=== PATIENT | male | born 1975 | race Caucasian/White ===

== ENCOUNTER 2016-12-12 23:00 | Inpatient (IN) ==
[2016-12-12] MEDS ORDERED: NS 1,000 ML IV ONE (23:17)
[2016-12-12 23:41] LABS: MANUAL DIFF NEEDED? NO
[2016-12-12 23:47] LABS: BASO% 0.1 % (0.0-0.8); EOS# 0.13 X1000 (0.0-0.7); EOS% 0.9 % (0.0-10.0); HEMATOCRIT 45.6 % (42.0-52.0); IMM GRAN# 0.04 X1000 (0.0-0.04); IMM GRAN% 0.3 % (0.0-0.5); LYMPH# 1.51 X1000 (1.2-3.4); LYMPH% 9.9 % (20.5-51.1); MCH 29.9 PG (27-31); MCHC 35.1 g/dL (33-37); MCV 85.2 FL (81-99); MONO# 0.61 X1000 (0.11-0.59); MPV 9.7 FL (7.4-10.4); NEUT% 84.8 % (42.2-75.2); PLT 310 X1000 (130-400); RBC 5.35 XMIL (4.7-6.1)
[2016-12-12 23:53] LABS: UR AMPHETAMINES QUAL NONE DETECTED (NONE DETECT); UR BARBITUATES QUAL NONE DETECTED (NONE DETECT); UR BENZODIAZEPIN QUAL PRESUMPTIVE POSITIVE (NONE DETECT); UR CANNABINOIDS QUAL NONE DETECTED (NONE DETECT); UR COCAINE QUAL NONE DETECTED (NONE DETECT); UR MDMA QUAL NONE DETECTED (NONE DETECT); UR METHADONE QUAL NONE DETECTED (NONE DETECT); UR METHAMPHETAMINE QUAL PRESUMPTIVE POSITIVE (NONE DETECT); UR OPIATES QUAL PRESUMPTIVE POSITIVE (NONE DETECT); UR OXYCODONE QUAL PRESUMPTIVE POSITIVE (NONE DETECT); UR PCP QUAL NONE DETECTED (NONE DETECT); UR TCA QUAL NONE DETECTED (NONE DETECT)
[2016-12-12 23:54] LABS: BILIRUBIN URINE NEGATIVE (NEGATIVE); BLOOD URINE NEGATIVE (NEGATIVE); CLARITY CLEAR (CLEAR); COLOR YELLOW; LEUKOCYTES URINE NEGATIVE (NEGATIVE); NITRITE URINE NEGATIVE (NEGATIVE); PROTEIN URINE 1+(30 mg/dL) mg/dL (NEGATIVE); UROBILINOGEN URINE NORMAL
[2016-12-12 23:59] LABS: URINE CULTURE PL NEEDED? YES; URINE EPITHELIAL CELLS <10 /HPF (<10); URINE RBC <10 /HPF (<10); URINE SOURCE CATH; URINE WBC <10 /HPF (<10)
[2016-12-13 00:02] LABS: AGAP 15; ALBUMIN 4.2 g/dL (3.5-5.0); ALKALINE PHOSPHATASE 75 U/L (32-122); BUN 10 mg/dL (8-22); CALCIUM 8.7 mg/dL (8.8-10.2); CHLORIDE 98 mmol/L (98-107); COSMO 283; GOT 27 U/L (10-34); GPT 32 U/L (10-44); SODIUM 138 mmol/L (136-145); TCO2 26 mmol/L (25-35); TOTAL PROTEIN 6.6 g/dL (6.3-8.3)
[2016-12-13] MEDS ORDERED: NS 1,000 ML IV ONE (01:40)
[2016-12-13] MEDS ORDERED: ZOFRAN IV PRN (01:40)
--- NOTE | 2016-12-13 02:35 | PROVIDER DOCUMENTATION ---
This chart was entered by Sury Keller Scribe, acting as scribe for Murphy Cardona MD. [id number] Abuse/Overdose - General Chief Complaint: Overdose Stated Complaint: overdose Time Seen by Provider: 12/12/16 23:16 Source: patient, EMS Allergies/Adverse Reactions: Allergies Allergy/AdvReac Type Severity Reaction Status Date / Time No Known Allergies Allergy Verified 10/21/16 21:09 Home Medications: Home Medication List Medication Instructions Recorded Confirmed Last Taken Type Cyclobenzaprine [Flexeril] 10 mg PO TID #20 tablet 10/21/16 Unknown Rx Ketorolac [Toradol] 10 mg PO Q8H PRN PRN #15 tablet 10/21/16 Unknown Rx Methylprednisolone [Medrol Dosepak] 4 mg PO DIRECTED #1 package 10/21/16 Unknown Rx - History of Present Illness-Drug/Alcohol Nature of Presenting Problem: 41 Y/O M presents to ER by EMS with the complain of overdose [employer]. According to the EMS pt was found unresponsive by his and she called ambulance. pt states that pt was taking methadon 2-3 years ago and pt works out of [employer] and takes his medicaton with him. pt is shaking all over his body and having severe withdrawal symptoms. This episode of drinking or use began:: just prior to arrival Associated Symptoms: reports: other (tremors and unressponsive) Review of Systems - Adult - REVIEW OF SYSTEMS - ADULT Constitutional: reports: no symptoms reported Eyes: reports: no symptoms reported Ears, Nose, Mouth & Throat: reports: no symptoms reported Cardiovascular: reports: no symptoms reported Respiratory: reports: no symptoms reported Gastrointestinal: reports: no symptoms reported Genitourinary: reports: no symptoms reported Musculoskeletal: reports: no symptoms reported Integumentary: reports: no symptoms reported Neurological: reports: tremors. denies: slurred speech, syncope Psychiatric: reports: no symptoms reported Endocrine: reports: no symptoms reported Hematologic/Lymphatic: reports: no symptoms reported Allergic/Immunologic: reports: no symptoms reported All Other Systems: Reviewed and Negative Past History - Adult - PAST MEDICAL HISTORY-ADULT Review of Records: reports: Old Records Reviewed, Nursing Assessment Review Major Childhood Illnesses: reports: denies history Cardiovascular: reports: denies history Respiratory: reports: other (recurrent pneumonia) Gastrointestinal: reports: denies history Obstetrical/Gynecological: reports: denies history Genitourinary: reports: denies history Musculoskeletal: reports: arthritis, chronic pain, neck/back injury Neurological: reports: denies history Endocrine/Immune: reports: denies history Other Conditions: reports: denies history - PRIOR SURGERIES/PROCEDURES Surgical/Procedure History: reports: tonsillectomy - IMMUNIZATION STATUS Childhood Immunizations: See Nurse Assessment Flu Vaccine: See Nurse Assessment - FAMILY HISTORY Family History: reviewed, not pertinent - SOCIAL HISTORY Smoking: cigarettes Provider spent 3-5 mins advising pt. on dangers of tobacco.: Discussed manners to quit use, and f/u contacts for add'l counseling. Physical Exam-General - PHYSICAL EXAM-ADULT Initial Vital Signs Reviewed: Yes - CONSTITUTIONAL General Appearance: mild distress, other (shaking all over his body) - EYES Eyes: PERRL/EOMI, pink conjunctivae - NECK Neck: non-tender, full range of motion, supple - RESPIRATORY Respiratory: chest non-tender, lungs clear, normal breath sounds - CARDIOVASCULAR Cardiovascular: normal peripheral pulses, regular rate, rhythm - MUSCULOSKELETAL Back Exam: normal inspection, no CVA tenderness - SKIN Integumentary: normal color, normal turgor, warm/dry - NEUROLOGIC Neurologic: grossly normal, no motor/sensory deficits - PSYCHIATRIC Psych/Mental Status: normal mood/affect, oriented x 3 Progress - PLAN OF CARE/RESULTS Progress/Plan/Lab Results: Vital Signs - 8 hr 12/12/16 23:01 12/12/16 23:10 12/13/16 00:43 Temperature 97.4 F L Pulse Rate 152 H 135 H 104 H Respiratory Rate 38 H 28 H 20 Blood Pressure 126/101 149/090 134/078 O2 Sat by Pulse Oximetry 94 L 96 100 Laboratory Results - last 24 hr 12/12/16 12/12/16 12/12/16 23:25 23:25 23:30 WBC RBC Hgb Hct MCV MCH MCHC RDW Std Deviation Plt Count MPV Immature Gran % (Auto) Neut % (Auto) Lymph % (Auto) Cole % (Auto) Eos % (Auto) Baso % (Auto) Immature Gran # (Auto) Neut # (Auto) Lymph # (Auto) Cole # (Auto) Eos # (Auto) Baso # (Auto) Sodium 138 Potassium 4.0 Chloride 98 Carbon Dioxide 26 Anion Gap 15 BUN 10 Creatinine 1.2 Estimated GFR/1.73 m2 > 60 BUN/Creatinine Ratio 8 Glucose 251 H Calculated Osmolality 283 Calcium 8.7 L Total Bilirubin 0.30 AST 27 ALT 32 Alkaline Phosphatase 75 Total Protein 6.6 Albumin 4.2 Globulin 2.0 Albumin/Globulin Ratio 2.0 Urine Source CATH Urine Color YELLOW Urine Clarity CLEAR Urine pH 5.0 Ur Specific [place] 1.020 Urine Protein 1+(30 mg/dL) A Urine Ketones NEGATIVE Urine Blood NEGATIVE Urine Nitrite NEGATIVE Urine Bilirubin NEGATIVE Urine Urobilinogen NORMAL Urine Microscopic RBC <10 Urine WBC NEGATIVE Urine Microscopic WBC <10 Ur Epithelial Cells <10 Urine Bacteria 2+ Urine Glucose 2+(250 mg/dL) A Urine Opiates Screen PRESUMPTIVE POSITIVE A Ur Oxycodone Screen PRESUMPTIVE POSITIVE A Urine Methadone Screen NONE DETECTED Ur Barbituates Screen NONE DETECTED Ur Tricyclics Screen NONE DETECTED Ur Phencyclidine Scrn NONE DETECTED Ur Amphetamines Screen NONE DETECTED U Methamphetamines Scrn PRESUMPTIVE POSITIVE A Urine MDMA Screen NONE DETECTED U Benzodiazepines Scrn PRESUMPTIVE POSITIVE A Urine Cocaine Screen NONE DETECTED U Cannabinoids Screen NONE DETECTED Plasma/Serum Ethyl Alc 12/12/16 12/12/16 23:30 23:30 WBC 15.18 H RBC 5.35 Hgb 16.0 Hct 45.6 MCV 85.2 MCH 29.9 MCHC 35.1 RDW Std Deviation 13.3 Plt Count 310 MPV 9.7 Immature Gran % (Auto) 0.3 Neut % (Auto) 84.8 H Lymph % (Auto) 9.9 L Cole % (Auto) 4.0 Eos % (Auto) 0.9 Baso % (Auto) 0.1 Immature Gran # (Auto) 0.04 Neut # (Auto) 12.87 H Lymph # (Auto) 1.51 Cole # (Auto) 0.61 H Eos # (Auto) 0.13 Baso # (Auto) 0.02 Sodium Potassium Chloride Carbon Dioxide Anion Gap BUN Creatinine Estimated GFR/1.73 m2 BUN/Creatinine Ratio Glucose Calculated Osmolality Calcium Total Bilirubin AST ALT Alkaline Phosphatase Total Protein Albumin Globulin Albumin/Globulin Ratio Urine Source Urine Color Urine Clarity Urine pH Ur Specific [place] Urine Protein Urine Ketones Urine Blood Urine Nitrite Urine Bilirubin Urine Urobilinogen Urine Microscopic RBC Urine WBC Urine Microscopic WBC Ur Epithelial Cells Urine Bacteria Urine Glucose Urine Opiates Screen Ur Oxycodone Screen Urine Methadone Screen Ur Barbituates Screen Ur Tricyclics Screen Ur Phencyclidine Scrn Ur Amphetamines Screen U Methamphetamines Scrn Urine MDMA Screen U Benzodiazepines Scrn Urine Cocaine Screen U Cannabinoids Screen Plasma/Serum Ethyl Alc Orders Category Date Time Status Admit - [facility] Routine AdmDCTranf 12/13/16 01:40 Ordered Activity - Strict Bedrest ORDERED Care 12/13/16 01:40 Active Gutierrez Cath Insertion ORDERED Care 12/12/16 23:30 Active Vital Signs Order ARRIVAL TO ROOM Care 12/13/16 01:40 Active Regular Diet Diet 12/13/16 01:41 Active ALCOHOL BLOOD Stat Lab 12/12/16 23:30 Completed CBC WITH ELECTRONIC DIFF [HEME] Stat Lab 12/12/16 23:30 Completed CMP [COMPREHENSIVE METABOLIC PANEL] [CHEM] Stat Lab 12/12/16 23:30 Completed UDS [URINE DRUG SCREEN PL] Stat Lab 12/12/16 23:25 Completed URINE CULTURE [RM] Routine Lab 12/13/16 00:00 Ordered ua [URINALYSIS PL W/POSS RFLX CULT] [URINALYSIS] Stat Lab 12/12/16 23:25 Completed 0.9% Sodium Chloride Inj [Ns] 1,000 ml Med 12/13/16 01:40 Active IV 125 mls/hr 0.9% Sodium Chloride Inj [Ns] 1,000 ml Med 12/12/16 23:17 Discontinued IV 999 mls/hr Ondansetron [Zofran] Med 12/13/16 01:40 Active 4 mg IV Q4H PRN PRN Oxygen Device Stat Oth 12/13/16 01:43 Active Telemetry [OM.EQ] Routine Oth 12/13/16 01:40 Active Transfer/Admit Order [TRANSFER] Routine Transfer 12/13/16 01:42 Ordered Result Diagrams: 12/12/16 23:30 12/12/16 23:30 - CONSULTS/PCP/HOSPITALIST Notification #1 *Consult/PCP/Hospitalist*: Dr. Murray Time Discussed: 01:37 Reason/Comments: discussed about pt Departure - Departure Date of Disposition Decision: 12/13/16 Time of Disposition Decision: 02:35 DIAGNOSIS: Opiate overdose Disposition: ADMITTED INPATIENT 09 Certified Medical Emergency: Emergent Condition: Serious - Critical Care Note This patient required my direct & personal management of CC.: No This chart was documented by the indicated scribe, (Sury Keller, Doc) and accurately reflects the services I performed and decisions made by me, Murphy Cardona MD, as attested by the provider's signature.
[2016-12-13 06:05] LABS: MANUAL DIFF NEEDED? NO
[2016-12-13 06:08] LABS: BASO% 0.2 % (0.0-0.8); EOS# 0.08 X1000 (0.0-0.7); EOS% 0.5 % (0.0-10.0); HEMATOCRIT 43.7 % (42.0-52.0); HEMOGLOBIN 15.1 g/dL (14.0-18.0); IMM GRAN# 0.03 X1000 (0.0-0.04); IMM GRAN% 0.2 % (0.0-0.5); LYMPH% 12.1 % (20.5-51.1); MCH 29.8 PG (27-31); MCHC 34.6 g/dL (33-37); MCV 86.2 FL (81-99); MONO# 1.06 X1000 (0.11-0.59); MONO% 6.8 % (1.7-9.3); MPV 10.1 FL (7.4-10.4); NEUT% 80.2 % (42.2-75.2); PLT 297 X1000 (130-400); RBC 5.07 XMIL (4.7-6.1)
[2016-12-13 06:29] LABS: AGAP 7; BUN 12 mg/dL (8-22); CALCIUM 8.9 mg/dL (8.8-10.2); CHLORIDE 101 mmol/L (98-107); COSMO 276; POTASSIUM 5.1 mmol/L (3.5-5.1); SODIUM 139 mmol/L (136-145); TCO2 31 mmol/L (25-35)
[2016-12-13] MEDS ORDERED: TYLENOL PO PRN (11:19)
[2016-12-13] MEDS ORDERED: ATIVAN IV PRN (11:19)
[2016-12-13] MEDS ORDERED: HALDOL IV PRN (11:20)
[2016-12-13] MEDS: LEVAQUIN 500 MG/D5W 500 MG/100 ML IVPB IV SCH (11:48)
--- NOTE | 2016-12-13 12:31 | Diag Imaging Result Doc PS360 ---
CHEST-PORTABLE - 12/13/2016 INDICATION: aspiration PN TECHNIQUE: COMPARISON: 02/14/2011 FINDINGS: The lungs are normally expanded and clear. Heart size and mediastinal contours are normal. No pneumothorax or pleural effusion. IMPRESSION: Negative exam. Electronically signed by Abdirashid Nobles 12/13/2016 12:29 PM
[2016-12-13] MEDS: DUONEB (A & A) INH SCH ×4 (12:45→23:11)
[2016-12-13] MEDS: CLINDAMYCIN 600 MG/NS 600 MG/50 ML IVPB IV SCH ×3 (13:15→19:27)
--- NOTE | 2016-12-13 15:11 | HISTORY AND PHYSICAL ---
PRIMARY CARE PHYSICIAN: None. CHIEF COMPLAINT: Found unresponsive by . HISTORY OF PRESENTING ILLNESS: This is a 41-year-old male who was at home yesterday and his apparently had gone to the bank. When she returned, she found him lying in the floor with vomitus on him, and stated he was breathing around 2-5 times a minute. She started some CPR at home, apparently. When EMS arrived, they stated he was breathing at 2-5 times a minute, gave him some Narcan, and placed him on a non-rebreather. He woke up. The patient states that he used heroin for his chronic pain, as he does not have access to any medication. His workup showed a white blood cell count of 15.69. His urine drug screen was presumptive positive for opioids, oxycodone, methamphetamines, and benzodiazepines, all of which he would buy off the street. Plasma alcohol level showed none detected. He was admitted to the intensive care unit for further evaluation and treatment. PAST MEDICAL HISTORY: Chronic pain and a bulging disk. PAST SURGICAL HISTORY: Tonsillectomy. FAMILY HISTORY: Noncontributory. SOCIAL HISTORY: He currently lives with his . He smokes a half-pack of cigarettes a day. Denied any alcohol use and is a polysubstance drug abuser with heroin, and the urine drug screen was positive for opiates, oxycodone, methamphetamines, and benzodiazepines. ALLERGIES: He has no known drug allergies. HOME MEDICATIONS: He does not take any medications on a routine basis. LABORATORY DATA: Showed a white blood cell count of 15.18, hemoglobin 16, hematocrit 45.6, platelets 310,000. Sodium 138, potassium 4, chloride 98, CO2 of 26, BUN of 10, creatinine 1.2, and glucose of 251. Urinalysis was negative except for 2+ bacteria. Urine drug screen, again, with opiates, oxycodone, methamphetamines, and benzodiazepines. REVIEW OF SYSTEMS: Denies blurred vision, dizziness, chest pain, coughing, shortness of breath, abdominal pain, nausea, vomiting, constipation, diarrhea, burning or hurting with urination. PHYSICAL EXAMINATION: VITAL SIGNS: On arrival, he had a temperature of 97.4 degrees, pulse of 152, respirations 38, blood pressure 126/101, saturating 94% on room air. Currently, he has a temperature of 97.6 degrees, pulse 92, respirations 17, blood pressure 114/65, saturating 99% on 3L via nasal cannula. GENERAL: This is a 41-year-old male who is lying in the bed, answers questions appropriately. Is still mildly lethargic, but arousable by verbal stimuli. HEENT: Normocephalic and atraumatic. Pupils are equal, round, reactive to light. Extraocular movements are intact. Oropharynx and nares are clear. NECK: Supple. LUNGS: Clear to auscultation bilaterally, with equal lung expansion and chest wall movement. HEART: Regular rate and rhythm. No murmurs, rubs, or gallops. ABDOMEN: Soft, nontender, nondistended. Bowel sounds are present x4 quadrants. EXTREMITIES: There is no clubbing, cyanosis, or edema. NEUROLOGICAL: The cranial nerves 2-12 are grossly intact. ASSESSMENT: 1. Drug overdose. 2. Leukocytosis. 3. Probable aspiration pneumonia. 4. Polysubstance drug abuse. PLAN: We will check a chest x-ray today. We will do a portable initially, as he is still mildly lethargic, and see what that shows us. Will go ahead and place him on Rocephin 1 g q.24 and clindamycin 600 mg IV q.8 and Zithromax Levaquin 500 mg IV q.24. Will place on DuoNeb q.4 hours and recheck a CBC and, BMP in the a.m. Dictated by FRED Gan for Jose Gardner MD cc: FRED Gan MD
[2016-12-14] MEDS: DUONEB (A & A) INH SCH ×6 (03:57→22:41)
[2016-12-14] MEDS: CLINDAMYCIN 600 MG/NS 600 MG/50 ML IVPB IV SCH ×2 (04:29→11:58)
[2016-12-14 06:25] LABS: BASO% 0.1 % (0.0-0.8); EOS# 0.14 X1000 (0.0-0.7); EOS% 0.7 % (0.0-10.0); HEMATOCRIT 44.1 % (42.0-52.0); HEMOGLOBIN 15.1 g/dL (14.0-18.0); IMM GRAN# 0.04 X1000 (0.0-0.04); IMM GRAN% 0.2 % (0.0-0.5); LYMPH# 1.54 X1000 (1.2-3.4); MANUAL DIFF NEEDED? NO; MCH 29.4 PG (27-31); MCHC 34.2 g/dL (33-37); MCV 85.8 FL (81-99); MONO% 5.7 % (1.7-9.3); MPV 10.7 FL (7.4-10.4); NEUT% 85.3 % (42.2-75.2); PLT 258 X1000 (130-400); RBC 5.14 XMIL (4.7-6.1)
[2016-12-14 06:41] LABS: AGAP 12; BUN 10 mg/dL (8-22); CALCIUM 9.2 mg/dL (8.8-10.2); CHLORIDE 99 mmol/L (98-107); COSMO 278; POTASSIUM 4.3 mmol/L (3.5-5.1); SODIUM 140 mmol/L (136-145); TCO2 29 mmol/L (25-35)
[2016-12-14] MEDS: LEVAQUIN 500 MG/D5W 500 MG/100 ML IVPB IV SCH (11:00)
[2016-12-14] MEDS ORDERED: LEVAQUIN 500 MG/D5W 500 MG/100 ML IVPB IV SCH (12:09)
[2016-12-14] MEDS ORDERED: CLINDAMYCIN 600 MG/NS 600 MG/50 ML IVPB IV SCH (12:09)
[2016-12-14] MEDS: CLEOCIN PO SCH ×3 (13:57→21:30)
--- NOTE | 2016-12-14 18:13 | PROGRESS NOTE ---
DATE: 12/14/2016 SUBJECTIVE: Patient resting quietly, no complaints voiced at this time. OBJECTIVE: Vital Signs: Temperature 98 degrees, pulse 100, respirations 14, blood pressure 144/89. Saturating 97% on room air. General: This is a 41-year-old male, who is lying in the bed, and answers questions appropriately. HEENT: Normocephalic and atraumatic. Pupils are equal, round, reactive to light. Extraocular movements are intact. Oropharynx and nares are clear. Neck: Supple. Lungs: Clear to auscultation bilaterally with equal lung expansion and chest wall movement. Heart: Regular rate and rhythm. No murmurs, rubs, or gallops. Abdomen: Soft, nontender, nondistended. Bowel sounds are present x4 quadrants. Extremities: No clubbing, cyanosis, or edema. Neurological: The cranial nerves 2-12 are grossly intact. LABORATORY DATA: Showed a white blood cell count of 19.21, hemoglobin 15.1, hematocrit 44.1, platelets 258,000. Sodium 140, potassium 4.3, pulse 68, chloride 99, CO2 29, BUN of 10, creatinine 0.8, glucose 92. IMAGING: Chest x-ray 12/13/2016. It was negative. ASSESSMENT: 1. Drug overdose, heroin. 2. Leukocytosis, most likely reactive. 3. Probable aspiration pneumonia. Chest x-ray was negative even though his white cells did go up from 15 to 19. It is thought this may most likely be reactive, but we will go ahead and keep him on his IV antibiotics and recheck laboratory in the a.m. 4. Polysubstance abuse, aware. DISPOSITION: We will transfer patient out of intensive care unit to the medical floor today. Recheck a CBC, BMP in the a.m. and a 2-2 view chest x-ray in the a.m. Dictated by FRED Gan for Mason Murray MD cc: FRED Gan MD
[2016-12-15] MEDS: DUONEB (A & A) INH SCH ×2 (03:15→07:52)
[2016-12-15 05:45] LABS: MANUAL DIFF NEEDED? NO
[2016-12-15 05:54] LABS: BASO% 0.1 % (0.0-0.8); EOS# 0.23 X1000 (0.0-0.7); EOS% 1.7 % (0.0-10.0); HEMATOCRIT 43.9 % (42.0-52.0); HEMOGLOBIN 15.6 g/dL (14.0-18.0); IMM GRAN# 0.04 X1000 (0.0-0.04); IMM GRAN% 0.3 % (0.0-0.5); LYMPH# 2.05 X1000 (1.2-3.4); LYMPH% 15.3 % (20.5-51.1); MCH 29.8 PG (27-31); MCHC 35.5 g/dL (33-37); MCV 83.8 FL (81-99); MONO# 0.95 X1000 (0.11-0.59); MONO% 7.1 % (1.7-9.3); MPV 10.2 FL (7.4-10.4); NEUT% 75.5 % (42.2-75.2); PLT 292 X1000 (130-400); RBC 5.24 XMIL (4.7-6.1)
[2016-12-15] MEDS: CLEOCIN PO SCH (05:58)
[2016-12-15 06:27] LABS: BUN 12 mg/dL (8-22); CALCIUM 9.2 mg/dL (8.8-10.2); TCO2 25 mmol/L (25-35)
[2016-12-15 06:28] LABS: AGAP 10; CHLORIDE 101 mmol/L (98-107); POTASSIUM 3.7 mmol/L (3.5-5.1); SODIUM 135 mmol/L (136-145)
[2016-12-15 06:37] LABS: COSMO 271
--- NOTE | 2016-12-15 07:59 | Diag Imaging Result Doc PS360 ---
EXAM: CHEST-2 VIEWS - 12/15/2016 HISTORY: leukocytosis TECHNIQUE: Chest two views COMPARISON: 12/13/2016 FINDINGS: Heart size is normal. There is a small wedge-shaped opacity at the lateral mid left chest. This is of uncertain significance and could represent scarring. The remainder lungs appear essentially clear. There is no pleural effusion or pneumothorax identified. IMPRESSION: Small opacity at lateral left mid chest, possibly representing scar. No evidence of pneumonia. Electronically signed by Jesus Murcia 12/15/2016 7:57 AM
[2016-12-15 08:44] VITALS: BP 131/75
[2016-12-15] MEDS ORDERED: LEVAQUIN PO SCH (09:00)
--- NOTE | 2016-12-16 13:37 | DISCHARGE SUMMARY ---
ADMISSION DATE: 12/13/2016 DISCHARGE DATE: 12/15/2016 DATE OF ADMISSION: 12/13/2016. DATE OF DISCHARGE: 12/15/2016. DIAGNOSES: 1. Drug overdose, heroin. 2. Leukocytosis, improving. 3. Probable aspiration pneumonia. We will continue Levaquin. 4. Polysubstance drug abuse, aware. DIAGNOSTICS: 12/13/2016 chest x-ray: Revealed a negative exam. 12/15/2016 chest x-ray: Revealed a small opacity at lateral left mid chest, possibly representing a scar. No evidence of pneumonia. MICROBIOLOGY: Urine culture: Revealed no growth. Blood cultures: Pending. HOSPITAL COURSE: Mr. Mcgregor presented to the emergency room after being found unresponsive by his . She found him lying in the floor with vomitus on him. She states he was breathing about 2- 5 times a minute CPR was performed until EMS arrived. At that time, he was given Narcan, placed on a non-rebreather and he woke up. He did state that he used heroin for his chronic pain as he does not have access to prescription medication. He was evaluated in ICU. He did improve and was able to be moved out to the floor, and thankfully is ready to be discharged home. DISCHARGE PHYSICAL EXAMINATION: Cardiovascular: Regular rate and rhythm. S1 and S2 appreciated. Pulmonary: Breath sounds are clear with no increased work of breathing noted. Gastrointestinal: Abdomen is soft, nontender, nondistended with bowel sounds in all 4 quadrants. Extremities: No clubbing, cyanosis, or edema. Calves are nontender and pulses are palpable x4. Neurologic: He is alert and oriented x3 with cranial nerves 2-12 grossly intact. DISCHARGE MEDICATIONS: Levaquin 500 mg p.o. daily x5 days. DISCHARGE DIET: Regular. DISCHARGE ACTIVITY: As tolerated. FOLLOWUP: He needs to follow up with his primary care physician in 1-2 weeks. He will also be given numbers to the physician referral line as well as [facility]. PATIENT INSTRUCTIONS: He has been instructed to return to the emergency room or call to be seen sooner for temperature greater than 101, shortness of breath, any chest pain, palpitations, syncope or any questions or concerns that he may have. He has been instructed that he needs to cease using all illicit drugs. He does state that he has no intentions of stopping these. He is being discharged home in stable condition with family members. TIME SPENT: This is a greater than 30 minute discharge. Dictated by FRED Miguel for Mason Murray MD cc: FRED Miguel MD
== END 2016-12-15 11:34 | disposition home or self-care (01) ==
LOC: P.ED 23:00 → P.ICU 12-13 02:06 → SUATTDRO 12-13 02:06 → P.MEDSURG 12-14 15:53
PROVIDERS: ATTEND Family Medicine